=== PATIENT | female | born 1955 | race Caucasian/White ===

== ENCOUNTER 2016-08-31 12:32 | Inpatient (IN) ==
[2016-08-31 13:06] LABS: BASO% 0.4 % (0.0-0.8); EOS# 0.05 X1000 (0.0-0.7); EOS% 0.5 % (0.0-10.0); HEMOGLOBIN 11.4 g/dL (12.0-16.0); IMM GRAN# 0.02 X1000 (0.0-0.04); IMM GRAN% 0.2 % (0.0-0.5); LYMPH# 2.28 X1000 (1.2-3.4); LYMPH% 22.4 % (20.5-51.1); MANUAL DIFF NEEDED? NO; MCH 28.8 PG (27-31); MCHC 32.6 g/dL (33-37); MCV 88.4 FL (81-99); MONO# 0.74 X1000 (0.11-0.59); MONO% 7.3 % (1.7-9.3); MPV 9.2 FL (7.4-10.4); NEUT% 69.2 % (42.2-75.2); PLT 330 X1000 (130-400); RBC 3.96 XMIL (4.2-5.4)
[2016-08-31 13:16] LABS: INR 1.05; PROTIME 11.1 Seconds (9.2-11.7); PTT 27.6 Seconds (22.0-36.0)
[2016-08-31 13:29] LABS: AGAP 13; ALBUMIN 4.2 g/dL (3.5-5.0); ALKALINE PHOSPHATASE 65 U/L (32-104); BUN 10 mg/dL (8-22); CALCIUM 9.1 mg/dL (8.8-10.2); CHLORIDE 105 mmol/L (98-107); COSMO 275; GOT 31 U/L (10-30); GPT 30 U/L (10-36); POTASSIUM 3.6 mmol/L (3.5-5.1); SODIUM 137 mmol/L (136-145); TCO2 19 mmol/L (25-35); TOTAL BILIRUBIN 0.24 mg/dL (0.20-1.00); TOTAL PROTEIN 6.9 g/dL (6.3-8.3)
[2016-08-31] MEDS ORDERED: NS 1,000 ML IV ONE (14:37)
--- NOTE | 2016-08-31 14:40 | PROVIDER DOCUMENTATION ---
HPI-Abdominal Pain/GI Problem - General Chief Complaint: Rectal Bleeding Stated Complaint: BLOOD LOSS Time Seen by Provider: 08/31/16 14:30 Source: patient, family Allergies/Adverse Reactions: Patient Allergies Allergy/AdvReac Type Severity Reaction Status Date / Time No Known Allergies Allergy Verified 08/31/16 17:24 Home Medications: Home Medication List Medication Instructions Recorded Confirmed Last Taken Type Alprazolam [Alprazolam ER] 0.5 mg PO DAILY 08/31/16 08/31/16 Unknown History Biotin 1 mg PO DAILY 08/31/16 08/31/16 Unknown History Cholecalciferol (Vitamin D3) 5,000 unit PO DAILY 08/31/16 08/31/16 Unknown History [Vitamin D3] Diphenhydramine HCl [Benadryl 0.5 tab PO DAILY PRN 08/31/16 08/31/16 Unknown History Allergy] Escitalopram Oxalate [Lexapro] 10 mg PO DAILY PRN 08/31/16 08/31/16 Unknown History Iron 08/31/16 Unknown History Losartan Potassium 50 mg PO DAILY 08/31/16 08/31/16 Unknown History Lysine 1 tab PO DAILY 08/31/16 08/31/16 Unknown History Magnesium 30 mg PO 08/31/16 Unknown History Meloxicam [Mobic] 15 mg PO DAILY PRN 08/31/16 08/31/16 Unknown History Nicotine [Nicoderm Cq] 1 each TD DAILY 08/31/16 08/31/16 Unknown History Pantoprazole [Protonix] 40 mg PO DAILY@0700 08/31/16 08/31/16 Unknown History Progesterone,Micronized 08/31/16 Unknown History [Progesterone] ROSUVAstatin [Crestor] 20 mg PO DAILY 08/31/16 08/31/16 Unknown History - History of Present Illness-ABD Nature of Presenting Problems: 61yof pt c/o abd pain with diarrhea intermittently for 'years', worse x2 days with bright red blood x2 episodes during loose BMs today. She denies fever/ chills/vomiting. She does report lower back pain x2-3 days which she had associated with sleeping on a new mattress. She is accompanied to the ED today with a family member. Her PCP is Dr. Ramos. Abdominal Pain Onset Location: reports: generalized abdomen Pain Radiation: reports: no radiation Quality of Pain: reports: cramping Severity in ED: reports: mild Onset/Duration: reports: 2 days ago Timing: reports: still present Activities at Onset: reports: none Exposure to sick contacts?: No Modifying Factors: improves with: nothing Associated Symptoms: reports: other (hematochezia x2 episodes today (noted bright red blood in toilet)) Last BM: this morning Dark Stools Present?: reports: bright red blood Rectal Bleeding: reports: bloody diarrhea # of Diarrhea Episodes: 2 Rectal Pain: reports: none Emesis Description: reports: none Bruising or Bleeding Gums?: No Similar Symptoms Previously?: No Recently seen or treated by another doctor?: No Review of Systems - Adult - REVIEW OF SYSTEMS - ADULT Constitutional: reports: no symptoms reported Eyes: reports: no symptoms reported Ears, Nose, Mouth & Throat: reports: no symptoms reported Cardiovascular: reports: no symptoms reported Respiratory: reports: no symptoms reported Gastrointestinal: reports: see HPI, abdominal pain, diarrhea, rectal bleeding. denies: hematemesis, constipation, vomiting Genitourinary: reports: no symptoms reported. denies: dysuria Musculoskeletal: reports: no symptoms reported Integumentary: reports: no symptoms reported Neurological: reports: no symptoms reported Psychiatric: reports: no symptoms reported Endocrine: reports: no symptoms reported Hematologic/Lymphatic: reports: no symptoms reported Allergic/Immunologic: reports: no symptoms reported All Other Systems: Reviewed and Negative Past History - Adult - PAST MEDICAL HISTORY-ADULT Review of Records: reports: Old Records Reviewed, Nursing Assessment Review, Medications Reviewed, Social history reviewed & non-contributory. Physical Exam-General - PHYSICAL EXAM-ADULT Initial Vital Signs Reviewed: Yes - CONSTITUTIONAL General Appearance: appears well, alert, no apparent distress - HEAD, EARS, NOSE, MOUTH & THROAT HENMT: normocephalic/atraumatic, moist mucous membranes, normal ENT inspection - NECK Neck: non-tender, full range of motion, supple - RESPIRATORY Respiratory: chest non-tender, lungs clear, normal breath sounds, no pleuratic chest pain, no respiratory distress, no accessory muscle use - CARDIOVASCULAR Cardiovascular: normal peripheral pulses, regular rate, rhythm, no edema - GASTROINTESTINAL (ABDOMEN) Abdominal Exam: normal bowel sounds, soft, no organomegaly, tenderness (mild nonspecific diffuse abd tenderness, no RT/rigidity/distention) - LYMPHATIC Lymphatic: no adenopathy - MUSCULOSKELETAL Back Exam: normal inspection Extremity: normal range of motion, non-tender, normal gait, normal inspection, no pedal edema, no calf tenderness, normal capillary refill - SKIN Integumentary: normal color, normal turgor, warm/dry - NEUROLOGIC Neurologic: 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, grossly normal, no motor/sensory deficits - PSYCHIATRIC Psych/Mental Status: normal mood/affect, normal thought content, normal thought process, oriented x 3 Progress - PLAN OF CARE/RESULTS Progress/Plan/Lab Results: Vital Signs - 8 hr 08/31/16 12:47 Temperature 98.4 F Pulse Rate 85 Respiratory Rate 18 Blood Pressure 109/76 O2 Sat by Pulse Oximetry 100 Laboratory Results - last 24 hr 08/31/16 08/31/16 08/31/16 12:53 12:53 12:53 WBC 10.16 RBC 3.96 L Hgb 11.4 L Hct 35.0 L MCV 88.4 MCH 28.8 MCHC 32.6 L RDW Std Deviation Not Reportable Plt Count 330 MPV 9.2 Immature Gran % (Auto) 0.2 Neut % (Auto) 69.2 Lymph % (Auto) 22.4 Armstrong % (Auto) 7.3 Eos % (Auto) 0.5 Baso % (Auto) 0.4 Immature Gran # (Auto) 0.02 Neut # (Auto) 7.03 H Lymph # (Auto) 2.28 Armstrong # (Auto) 0.74 H Eos # (Auto) 0.05 Baso # (Auto) 0.04 PT 11.1 INR 1.05 PTT (Actin FS) 27.6 Sodium 137 Potassium 3.6 Chloride 105 Carbon Dioxide 19 L Anion Gap 13 BUN 10 Creatinine 0.8 Estimated GFR/1.73 m2 > 60 BUN/Creatinine Ratio 13 Glucose 138 H Calculated Osmolality 275 Calcium 9.1 Total Bilirubin 0.24 AST 31 H ALT 30 Alkaline Phosphatase 65 Total Protein 6.9 Albumin 4.2 Globulin 2.7 Albumin/Globulin Ratio 1.6 Blood Type Antibody Screen 08/31/16 12:53 WBC RBC Hgb Hct MCV MCH MCHC RDW Std Deviation Plt Count MPV Immature Gran % (Auto) Neut % (Auto) Lymph % (Auto) Armstrong % (Auto) Eos % (Auto) Baso % (Auto) Immature Gran # (Auto) Neut # (Auto) Lymph # (Auto) Armstrong # (Auto) Eos # (Auto) Baso # (Auto) PT INR PTT (Actin FS) Sodium Potassium Chloride Carbon Dioxide Anion Gap BUN Creatinine Estimated GFR/1.73 m2 BUN/Creatinine Ratio Glucose Calculated Osmolality Calcium Total Bilirubin AST ALT Alkaline Phosphatase Total Protein Albumin Globulin Albumin/Globulin Ratio Blood Type A NEGATIVE Antibody Screen NEGATIVE Orders Category Date Time Status Repeat Vital Signs .Blood Pressure Care 08/31/16 14:[address] ABD/PELVIS W/ IV CONT ONLY [CT] Stat Exams 08/31/16 14:37 Ordered CBC WITH ELECTRONIC DIFF [HEME] Stat Lab 08/31/16 12:53 Completed COMPREHENSIVE METABOLIC PANEL [CHEM] Stat Lab 08/31/16 12:53 Completed OCCULT BLOOD DIAGNOSTIC [STOOL] Stat Lab 08/31/16 14:30 Uncollected PROTIME WITH INR [COAG] Stat Lab 08/31/16 12:53 Completed PTT [COAG] Stat Lab 08/31/16 12:53 Completed TYPE & SCREEN [BBK] Stat Lab 08/31/16 12:53 Completed 0.9% Sodium Chloride Inj [Ns] 1,000 ml Med 08/31/16 14:37 Active IV 999 mls/hr Result Diagrams: 08/31/16 15:37 08/31/16 12:53 - REASSESSMENT Reassessment #1 Time Reassessed: 15:39 (Pt experienced large bright red BM upon being transported to CT; At BS I found pt with SBP 60s in Trendelenburg position. Ordered second IV and repeat CBC; IV fluid bolus ordered. Pt now reports a history of blood transfusion 15 yrs ago for unknown bleeding source. Discussed pt with Dr. Harp; he agrees with tx plan.) Status: worsening Reassessment #2 Time Reassessed: 17:40 (CT results pending; paged Dr. Ramos for admit. Pt with SBP >100 since IV fluids. Repeat Hct down from 35 to 31 following BM in ED.) Status: improving Reassessment #3 Time Reassessed: 17:50 (Spoke with Dr. Naresh Ramos, he states patient is not his. Pt must utilize Dr. Jose J Ramos; paged Hospitalist.) Status: unchanged Reassessment #4 Time Reassessed: 18:14 (Spoke with Dr. King, he recommends admit and also recommends consult surgeon.) Status: unchanged Reassessment #5 Time Reassessed: 18:16 (Spoke with Dr. Clemente, he is aware of patient and her CT results. He will consult.) Status: unchanged Departure - Departure Date of Disposition Decision: 08/31/16 Time of Disposition Decision: 18:17 DIAGNOSIS: Hypotension due to blood loss, Anemia, Intussusception GI bleed Qualifiers: GI bleed type/associated pathology: unspecified gastrointestinal hemorrhage type Qualified Code(s): K92.2 - Gastrointestinal hemorrhage, unspecified Disposition: ADMITTED INPATIENT 09 Certified Medical Emergency: Emergent Condition: Stable Referrals and Follow-Ups: Jose J Ramos MD [Primary Care Provider] - - Critical Care Note This patient required my direct & personal management of CC.: Yes Total Time (mins): 36 (performing reassessment with IV fluid boluses and consulting physicians.) Critical Care Statement: This patient required my direct personal management to treat or rule out processes, the absence of which, could potentiallly result in sudden, clinically significant life or limb threatening deterioration. Comments: Patient care supervised by Dr. Demond Harp in the ED today. He is aware of patient and her CT results. He agrees with plan for admit to Dr. King with surgery consult for Dr. Clemente. Attestation - Physician/ MARCELLA Attestation Patient care was provided by Advanced Practice Provider:: Yes Advanced Practice Provider:: Ivis Schmidt Advanced Practice Provider documentation review:: The Mid-level provider documentation, treatment plan and medical decision making was reviewed by the physician who agrees with all treatment and medical decision making by the [facility].
[2016-08-31] MEDS ORDERED: PROTONIX IV ONE (15:27)
[2016-08-31] MEDS ORDERED: SODIUM CHLORIDE 0.9% INJ ONE ×2 (15:27→20:21)
[2016-08-31 16:17] LABS: BASO% 0.3 % (0.0-0.8); EOS# 0.05 X1000 (0.0-0.7); EOS% 0.5 % (0.0-10.0); HEMATOCRIT 31.7 % (37.0-47.0); HEMOGLOBIN 10.3 g/dL (12.0-16.0); IMM GRAN# 0.04 X1000 (0.0-0.04); IMM GRAN% 0.4 % (0.0-0.5); LYMPH# 3.34 X1000 (1.2-3.4); LYMPH% 30.6 % (20.5-51.1); MANUAL DIFF NEEDED? NO; MCH 29.1 PG (27-31); MCHC 32.5 g/dL (33-37); MCV 89.5 FL (81-99); MONO# 0.84 X1000 (0.11-0.59); MONO% 7.7 % (1.7-9.3); MPV 9.4 FL (7.4-10.4); NEUT% 60.5 % (42.2-75.2); PLT 332 X1000 (130-400); RBC 3.54 XMIL (4.2-5.4)
--- NOTE | 2016-08-31 18:02 | Diag Imaging Result Doc PS360 ---
CT ABD/PELVIS W/ IV CONT ONLY - 08/31/2016 INDICATION: lower abd pain, GI bleed TECHNIQUE: A CT dose reduction protocol was used. COMPARISON: None FINDINGS: At the small bowel in the right lower quadrant, there is an intraluminal wall based lipoma measuring about 1.7 cm. This is apparently serving as the lead point for beginning of intussusception. See images 75-103. This is not yet obstructing. There is a lot of liquid stool throughout the colon. No free air or free fluid. No bowel wall thickening. The lung bases are clear and the heart size is normal. The liver, gallbladder, spleen, pancreas, adrenals, and kidneys are normal. Urinary bladder, uterus, and rectum are normal. Bones are intact. IMPRESSION: Intraluminal small bowel lipoma in the right lower quadrant that is serving as the lead point for an early ileal-ileal intussusception. This is not yet obstructing, but may become so. Electronically signed by Luciano Matthew 08/31/2016 5:59 PM
[2016-08-31 18:45] LABS: INR 1.08; PROTIME 11.4 Seconds (9.2-11.7); PTT 24.3 Seconds (22.0-36.0)
--- NOTE | 2016-08-31 19:30 | HISTORY AND PHYSICAL ---
CHIEF COMPLAINT: Chest pain. Hematochezia, bright red blood per rectum. HISTORY OF PRESENT ILLNESS: This is a 61-year-old female, no major medical problems. She has some hypertension, she is on Mobic. She has had intermittent diarrhea, but worse over the last 2 days and she had 4 episodes total of bright red blood per rectum. No fevers, chills, vomiting. She does have some lower back pain, but denies any abdominal pain. Denies any nausea or emesis. She does report a history of a hernia. I think a couple of years ago she had melena and she ended up seeing a GI doctor in [place]. She got transfusion. I think she was treated for H. pylori gastritis at that time. She denies any history of diverticulosis or other issue. Workup in the ER did reveal low hemoglobin and hematocrit of 10 and 33. I do not think we got a Hemoccult, but she reported that. CT scan was ordered which showed intussusception of her ileal bowel into the ileal bowel which there is an intraluminal wall-based lipoma 1.7 cm which is the leading edge of the intussusception, but no obstruction at this point. Other CT was negative. There is no evidence of colitis. The patient admitted for GI bleed and intussusception. PAST MEDICAL HISTORY: 1. Hypertension. 2. Anxiety, depression. 3. Gastritis. 4. Chronic anemia, she has seen Dr. Carter in the past and has been on iron infusions. 5. Dyslipidemia. PAST SURGICAL HISTORY: No major abdominal surgeries. SOCIAL HISTORY: No tobacco or ethanol or occasional use. ALLERGIES: No known drug allergies. MEDICATIONS: She takes Xanax 0.5 daily, biotin 1 daily, vitamin D3 5000 units daily, Benadryl, Lexapro, losartan 50 daily, lysine, magnesium, Mobic 15 daily, nicotine, Protonix and Crestor 20 daily. REVIEW OF SYSTEMS: Ten systems reviewed. Otherwise negative. PHYSICAL EXAMINATION: VITAL SIGNS: Blood pressure 120/59, heart rate of 55, respiratory rate 18, temperature 98.4 degrees, 100% on room air. GENERAL: A well-developed female, in no acute distress. HEAD: Normocephalic, atraumatic. EYES: Pupils equal, round, reactive to light. Extraocular movements were intact. EAR/NOSE/THROAT: Moist mucous membranes. NECK: Supple. CARDIOVASCULAR: Regular rate and rhythm. No murmurs, gallops, or rubs. PULMONARY: Bilateral breath sounds. Clear to auscultation. GI: Soft, nontender, nondistended. Bowel sounds are positive. EXTREMITIES: No clubbing or cyanosis. LYMPHATICS: No peripheral edema. NEUROLOGICAL: Nonfocal. LABORATORY DATA: She has a white count 10.9, hemoglobin and hematocrit 10 and 31, platelets 332,000. Coagulase negative. CMP was negative or fairly unremarkable. IMAGING: CT scan again showed ileal-ileal intussusception. ASSESSMENT: A 61-year-old female, history of hypertension, presenting with lower GI bleed presumably and intussusception. 1. Lower gastrointestinal bleed. We will monitor hemoglobin and hematocrit, pursue GI consult. She has seen Dr. Pandya in the past, so we will consult his group. Follow hemoglobin and hematocrit, continue proton pump inhibitor and follow. I am not entirely clear that the intussusception since it is all the way up in her small bowel is a source of bleeding, but it certainly could be. We will continue to follow. 2. Intussusception. Surgery has been consulted. At this point there is no obstruction. Dr. Clemente will evaluate the patient. We discussed the case briefly with him. We are going to go ahead and allow her to have clear liquids tonight and then nothing after midnight. We will go from there. We will continue pain control and follow closely. cc: MD Jose J Thomas MD
[2016-08-31 19:45] LABS: BASO% 0.2 % (0.0-0.8); EOS# 0.07 X1000 (0.0-0.7); EOS% 0.5 % (0.0-10.0); HEMATOCRIT 30.3 % (37.0-47.0); HEMOGLOBIN 9.9 g/dL (12.0-16.0); IMM GRAN# 0.04 X1000 (0.0-0.04); IMM GRAN% 0.3 % (0.0-0.5); LYMPH# 1.75 X1000 (1.2-3.4); LYMPH% 13.1 % (20.5-51.1); MANUAL DIFF NEEDED? NO; MCH 29.1 PG (27-31); MCHC 32.7 g/dL (33-37); MCV 89.1 FL (81-99); MONO# 0.74 X1000 (0.11-0.59); MONO% 5.6 % (1.7-9.3); MPV 10.5 FL (7.4-10.4); NEUT% 80.3 % (42.2-75.2); PLT 221 X1000 (130-400)
[2016-08-31] MEDS ORDERED: TYLENOL PO PRN (20:21)
[2016-08-31] MEDS ORDERED: DESYREL PO PRN (20:21)
[2016-08-31] MEDS ORDERED: ZOFRAN IV PRN (20:21)
[2016-08-31] MEDS ORDERED: SODIUM CHLORIDE 0.9% 20 ML ONE (20:38)
[2016-08-31] MEDS: NS 1,000 ML IV SCH (20:47)
[2016-08-31 22:33] LABS: HEMATOCRIT 28.6 % (37.0-47.0); HEMOGLOBIN 9.2 g/dL (12.0-16.0)
[2016-08-31] MEDS ORDERED: XANAX PO ONE (22:48)
[2016-09-01] MEDS: NS 1,000 ML IV SCH ×2 (03:44→17:55)
[2016-09-01] MEDS: MORPHINE IV PRN ×2 (03:45→20:57)
--- NOTE | 2016-09-01 05:33 | EKG Report ---
Test Performed on : 08/31/2016 5:24:41 PM Test Reason : NEAR SYNCOPE Blood Pressure : / mmHG Vent. Rate : 052 BPM Atrial Rate : 052 BPM P-R Int : 108 ms QRS Dur : 076 ms QT Int : 496 ms P-R-T Axes : 049 026 051 degrees QTc Int : 461 ms Sinus bradycardia. with short [place] Otherwise normal ECG No previous ECGs available Confirmed by Dionisio Syed MD ([id number]) on 09/02/2016 12:59:17 PM
--- NOTE | 2016-09-01 09:59 | CONSULTATION ---
DATE OF CONSULTATION: 08/31/2016 CHIEF COMPLAINT: Intussusception. HISTORY: This is a 61-year-old lady who presents with some hematochezia. She was coincidentally noted to have an ileoileal intussusception on CT scan. She denies any significant abdominal pain. She has been seen before with melena and has been transfused before. She has a history of H. pylori gastritis as well. She has been followed by Dr. Carter for chronic anemia and has received iron infusions. OTHER MEDICAL PROBLEMS: Include hypertension, anxiety, dyslipidemia. Apparently has a history of a hiatal hernia. No previous abdominal surgery. SOCIAL HISTORY: She is . She denies any alcohol or tobacco usage. MEDICATIONS: At home include Xanax, biotin, vitamin D3, Benadryl, Lexapro, losartan, lysine, magnesium, Mobic, Protonix, and Crestor. ALLERGIES: She has no known drug allergies. REVIEW OF SYSTEMS: Pertinent for the occasional lower back pain, the melena, and even hematochezia. PHYSICAL EXAMINATION: Vital Signs: She is afebrile. Heart rate 55, respiratory rate 20, blood pressure 115/60. Neck: No cervical adenopathy. Lungs: Bilateral breath sounds. Heart: Regular rhythm. Abdomen: Soft and nontender. Extremities: Femoral pulses are present. No peripheral edema. DIAGNOSTICS/LABS: White count is 13,300, hemoglobin 9.2, hematocrit 28.6. ASSESSMENT: Ileoileal intussusception which apparently is not causing any obstructive symptoms. With the low-density of the mass on CT, it probably does represent a lipoma as a lead point. I doubt that this is the cause of her bleeding. I do think that it should be resected at some point. I do not think this is an emergency. I will allow the electrical instrument maker to further evaluate her gastrointestinal bleeding and then potentially prepare her for a laparoscopic removal of the intussusception. cc: Jeronimo Clemente MD
[2016-09-01] MEDS ORDERED: PROTONIX IV SCH ×2 (11:00→17:00)
[2016-09-01] MEDS ORDERED: LEXAPRO PO PRN (12:05)
[2016-09-01] MEDS: SODIUM CHLORIDE 0.9% INJ PRN (12:51)
[2016-09-01] MEDS: COZAAR PO SCH (12:51)
[2016-09-01 13:07] LABS: HEMATOCRIT 22.9 % (37.0-47.0); HEMOGLOBIN 7.4 g/dL (12.0-16.0)
[2016-09-01] MEDS ORDERED: GOLYTELY PO ONE (14:00)
--- NOTE | 2016-09-01 17:29 | PROGRESS NOTE ---
DATE: 09/01/2016 SUBJECTIVE: The patient has no focal complaints. OBJECTIVE: Blood pressure 136/70, heart rate 58, respiratory rate of 20, temperature 97.5 degrees, 92% on room air.Cardiovascular: Regular rate and rhythm. Pulmonary: Bilateral breath sounds. Clear to auscultation. GI: Soft, nontender, nondistended. Bowel sounds are positive. LABORATORY DATA: Her hemoglobin and hematocrit has dropped to 7.4 and 2.9, white count around 13,000. Chemistries: No change from yesterday, were not repeated today. PROBLEM LIST: 1. Acute gastrointestinal bleed, presumably lower. We will continue to monitor. She is already on iron supplements. We will go ahead and transfuse 1 unit and follow clinically. Hold anti- platelet medications. Gastroenterology has been consulted. Plan for esophagogastroduodenoscopy, colon tomorrow. She has been placed on IV proton pump inhibitor. 2. Intussusception with concern over possible small bowel tumor. Dr. Clemente is evaluating the patient. Plan for surgical intervention when she is stabilized from her gastrointestinal bleed standpoint. 3. Hypertension. Appears to be stable. We will continue to monitor. DISPOSITION: Pending her clinical course. cc: Anurag King MD
[2016-09-01 18:08] LABS: RETIC% 2.35 % (0.8-2.1); RETIC-HE 37.6 PG (28.2-36.6)
[2016-09-01 18:22] LABS: IRON SATURATION 12 %; TIBC 295 ug/dL; TOTAL IRON 36 ug/dL (49-151); UNBOUND IRON 259 ug/dL (112-346)
[2016-09-01 18:51] LABS: FERRITIN 20 ng/mL (13-150)
--- NOTE | 2016-09-01 19:24 | CONSULTATION ---
DATE OF CONSULTATION: 09/01/2016 ATTENDING PHYSICIAN: Anurag King MD PRIMARY DOCTOR: Jose J Ramos MD REASON FOR CONSULTATION: Hematochezia and anemia. HISTORY OF PRESENT ILLNESS: Ms. Jordan is a 61-year-old female who was admitted on 08/31/2016 with 2-day history of bright red blood per rectum. Per the patient, she had 4 episodes of bright blood per rectum. She has had EGD and colonoscopy done [address] [place] at [place]. At that time, she was told that she had a hiatal hernia. She was also told treated for Helicobacter pylori at that time. The patient had imaging done which showed evidence of intussusception of her ileal bowel into the ileal bowel related to intraluminal lipoma measuring 1.7 cm , which is the leading edge of the intussusception. There was no evidence of any colitis. The patient was seen by Dr. Clemente who is planning for possible surgery early next week, but Gastroenterology is consulted to evaluate for possible upper GI or lower GI source for possible bleeding before blaming it on intussusception. Patient does take Mobic at home for arthritis. PAST MEDICAL HISTORY: 1. Hypertension. 2. Anxiety. 3. Depression. 4. Gastritis. 5. H. pylori. 6. Hiatal hernia. 7. Chronic anemia. Has seen Dr. Carter in the past and has been on iron infusions. 8. Dyslipidemia. PAST SURGICAL HISTORY: EGD and colonoscopy in [address] Fitzgerald. SOCIAL HISTORY: No history of alcohol, tobacco, or illicit drugs. ALLERGIES: No known drug allergies. MEDICATIONS AT HOME: Xanax 0.5 mg daily. Biotin 1 daily. Vitamin D3 5000 units daily. Benadryl. Lexapro. Losartan. Lysine. Magnesium. Mobic 15 mg daily. Nicotine. Protonix every day. Crestor 20 mg a day. REVIEW OF SYSTEMS: Denies any fevers, rigors, chills, chest pain, shortness of breath, dyspnea at rest. Denies any genitourinary or neurologic complaints. Does have history of arthritis. Denies history of nausea, vomiting or vomiting blood. Does complain of bright red blood in the stools since last 2 days. Denies any neurologic complaints. MEDICATIONS IN THE HOSPITAL: Reviewed in the EMR. PHYSICAL EXAMINATION: Vital signs: Temperature of 97.5 degrees, pulse rate of 58, respiratory rate 20, blood pressure 136/70 saturating 92% on room air. Body weight of 136 pounds 14.4 ounces, BMI of 28 kg/m2. General: Moderately built, moderately nourished lying in bed , in no acute distress. HEENT: Pale conjunctivae. No icterus. Pupils equal, react to light. Neck: Supple. Chest: Decreased breath sounds. Heart: Regular in rhythm, no murmurs. Abdomen: Soft, nontender, nondistended. Bowel sounds heard, no guarding, no rebound. Extremities: No cyanosis, clubbing, edema. Neurologic: She is alert, awake, oriented. LABORATORY: Her hemoglobin and hematocrit is 7.4 and 22.9, white count of 13.3 , platelet count of 221,000, MCV 80 and INR 1.08. PT 11.4, PTT of 24.3. Sodium 137, potassium 3.6 , chloride 105. Bicarb 99. Anion gap 13. BUN of 10. Creatinine 0.8, glucose of 130, calcium 9.1, total bilirubin is 0.24, AST 31, ALT 30, alkaline phosphatase 60, total protein 6.9, albumin of 4.2, troponin less than 0.01. IMAGING: in the form of CT of the abdomen and pelvis done on 08/31/2016 showed intraluminal small bowel lipoma in the right lower quadrant that is serving as a lead point for an early ileal-ileal intussusception. This is not yet obstructing but may become so. IMPRESSION AND PLAN: 1. Hematochezia. 2. Anemia. 3. Ileal-ileal intussusception secondary to intraluminal lipoma measuring 1.[address] Jeronimo Clemente is consulted. 4. Reflux disease. 5. Hiatal hernia. 6. History of Helicobacter pylori. 7. History of nonsteroidal antiinflammatory drugs in the form of Mobic. RECOMMENDATIONS: 1. We will continue on proton pump inhibitor, on Nexium intravenous b.i.d. 2. We will keep on clear liquid diet. 3. We will start her on GoLYTELY today; NPO past midnight and schedule EGD colonoscopy tomorrow. 4. The patient will have laboratory and serial hematocrits, and we will transfuse her if she continues to drop hematocrit. 5. Patient will follow gastroesophageal reflux life changes outpatient. 6. If the GI workup is negative then she may undergo small bowel surgery early next week by Dr. Clemente. We will continue on iron supplementation for anemia. 7. Further recommendations to follow pending the hospital course. I discussed the above plan of care the patient and family and also with Dr. Jeronimo Clemente. cc: Dilip Horta MD, Hollis King MD; Jose J Ramos MD [facility]
[2016-09-01] MEDS: XANAX PO SCH (20:30)
[2016-09-02 00:10] LABS: HEMATOCRIT 25.1 % (37.0-47.0)
[2016-09-02] MEDS: SODIUM CHLORIDE 0.9% INJ PRN ×2 (01:05→13:12)
[2016-09-02] MEDS: NEXIUM IV SCH ×2 (01:05→13:12)
[2016-09-02] MEDS: NS 1,000 ML IV SCH ×4 (02:35→18:48)
[2016-09-02 06:22] LABS: HEMATOCRIT 26.9 % (37.0-47.0); HEMOGLOBIN 8.7 g/dL (12.0-16.0); MCH 29.4 PG (27-31); MCHC 32.3 g/dL (33-37); MCV 90.9 FL (81-99); MPV 9.2 FL (7.4-10.4); RBC 2.96 XMIL (4.2-5.4)
[2016-09-02 06:45] LABS: AGAP 10; BUN 5 mg/dL (8-22); CHLORIDE 114 mmol/L (98-107); COSMO 286; POTASSIUM 3.3 mmol/L (3.5-5.1); SODIUM 145 mmol/L (136-145); TCO2 21 mmol/L (25-35)
[2016-09-02] MEDS ORDERED: PROTONIX PO SCH (07:00)
[2016-09-02 07:14] LABS: CALCIUM 7.3 mg/dL (8.8-10.2)
[2016-09-02] MEDS: POTASSIUM CHLORIDE 20 MEQ/SWI 20 MEQ/100 ML IVPB IV SCH ×2 (10:25→14:37)
[2016-09-02] MEDS: COZAAR PO SCH (10:26)
[2016-09-02] MEDS: CRESTOR PO SCH (10:26)
[2016-09-02] MEDS: FERROUS SULFATE PO SCH (10:27)
[2016-09-02] MEDS: NICODERM PATCH TD SCH (10:27)
[2016-09-02] MEDS: PATIENT'S OWN MED PO SCH (10:30)
[2016-09-02] MEDS ORDERED: DIPRIVAN 1% ONE (12:17)
[2016-09-02] MEDS ORDERED: FENTANYL ONE (12:27)
[2016-09-02] MEDS ORDERED: XYLOCAINE-MPF 2% ONE (12:34)
[2016-09-02] MEDS ORDERED: FERRLECIT 125 MG in NS 100 ML IV ONE (16:00)
--- NOTE | 2016-09-02 16:32 | PROGRESS NOTE ---
DATE: 09/02/2016 SUBJECTIVE: Patient has no focal complaints. OBJECTIVE: Vital signs: Blood pressure 131/78, heart rate 57, respiratory rate 14, temperature 98 degrees. Cardiovascular: Regular rate and rhythm. Pulmonary: Bilateral breath sounds. Clear to auscultation. GI: Soft, nontender, nondistended. Bowel sounds are positive. Extremities: No clubbing or cyanosis. Lymphatic: No peripheral edema. PROBLEM LIST: 1. Gastrointestinal bleed. Unclear what source this may be. EGD and colon today are negative but the comment per Dr. Pandya is that she had blood in her terminal ileum which makes me suspicious that she has a small bowel source and with the fact that she has an ileal intussusception is concerning for that being the source actually of her bleeding, which also raises suspicion at this point of possibly a Meckel's diverticulum. So in any case, the point is mute. Dr. Jeronimo Clemente will plan for surgery on Monday. 2. Anemia. Appears to be stable. We were going to go ahead and give her some iron and follow closely. 3. Dyslipidemia. Appears to be stable. Continue regular medications. 4. Hypertension. Continue regular medications. We will follow closely and plan for surgical preop treatment based on her risk factors. cc: Anurag King MD
[2016-09-02] MEDS: XANAX PO SCH (21:41)
[2016-09-02] MEDS: MORPHINE IV PRN (21:41)
[2016-09-03] MEDS: NEXIUM IV SCH ×2 (01:45→16:14)
[2016-09-03] MEDS: SODIUM CHLORIDE 0.9% INJ PRN (01:45)
[2016-09-03] MEDS ORDERED: MORPHINE IV PRN (01:51)
[2016-09-03] MEDS: NS 1,000 ML IV SCH (05:58)
[2016-09-03 06:00] LABS: HEMATOCRIT 15.2 % (37.0-47.0); MCH 28.8 PG (27-31); MCHC 32.2 g/dL (33-37); MCV 89.4 FL (81-99); MPV 9.4 FL (7.4-10.4); RBC 1.7 XMIL (4.2-5.4)
[2016-09-03 06:02] LABS: HEMOGLOBIN 4.9 g/dL (12.0-16.0)
[2016-09-03 06:15] LABS: AGAP 8; BUN 5 mg/dL (8-22); CALCIUM 7.1 mg/dL (8.8-10.2); CHLORIDE 107 mmol/L (98-107); COSMO 272; POTASSIUM 3.3 mmol/L (3.5-5.1); SODIUM 137 mmol/L (136-145); TCO2 22 mmol/L (25-35)
--- NOTE | 2016-09-03 09:59 | PROGRESS NOTE ---
DATE: 09/03/2016 SUBJECTIVE: Ms. Marlen Jordan is a 61-year-old white female who was admitted on 08/31/2016 through the emergency department with a gastrointestinal bleed. She was admitted to the hospitalist. A CT scan of her abdomen and pelvis was performed, which suggested a possible intussusception in the ileum. Dr. Clemente was consulted and GI Medicine. Dr. Pandya scoped the patient with both upper and lower endoscopies yesterday without a source for the bleeding. This morning she states that she has had more blood per rectum but it seems to have slowed down; however, her hematocrit was quite low at 15; that was yesterday evening and she is receiving packed red blood cells. From the computer, I think that she has received 2 units of packed red blood cells thus far. She is awake, cooperative. She did drink some liquids this morning, but because of her ongoing blood loss and significant anemia, we may need to proceed with surgery this weekend. I did discuss surgery with her. She understands this is major intra-abdominal surgery with bowel resection, and she is anxious to proceed. We specifically discussed risks of bleeding, infection, leakage from a bowel anastomosis and ongoing bleeding. cc: Blanca Weldon MD
[2016-09-03] MEDS: COZAAR PO SCH (10:04)
[2016-09-03] MEDS: CRESTOR PO SCH (10:05)
[2016-09-03] MEDS: FERROUS SULFATE PO SCH (10:05)
[2016-09-03] MEDS: NICODERM PATCH TD SCH (10:05)
[2016-09-03] MEDS: PATIENT'S OWN MED PO SCH (10:05)
[2016-09-03] MEDS ORDERED: ALBUMIN 25% IV ONE (10:30)
[2016-09-03] MEDS ORDERED: QUELICIN (DOSE) ONE (10:37)
[2016-09-03] MEDS ORDERED: XYLOCAINE-MPF 2% ONE (10:37)
[2016-09-03] MEDS ORDERED: AMIDATE ONE (10:37)
[2016-09-03] MEDS ORDERED: KEFZOL 1 GM/D5W 1 GM/50 ML IVPB ONE (10:52)
[2016-09-03] MEDS ORDERED: ZEMURON ONE ×2 (11:00→12:04)
[2016-09-03] MEDS ORDERED: MARCAINE 0.25% PF ONE (11:02)
[2016-09-03] MEDS ORDERED: EXPAREL 1.3% ONE (11:02)
[2016-09-03] MEDS ORDERED: SODIUM CHLORIDE 0.9% 10 ML ONE (11:02)
[2016-09-03] MEDS ORDERED: FENTANYL ONE (11:03)
[2016-09-03] MEDS ORDERED: ROBINUL ONE ×2 (11:21→12:09)
[2016-09-03] MEDS ORDERED: OFIRMEV 1000 MG/ISOTONIC SOLN 1,000 MG/100 ML BOTTLE ONE (11:31)
[2016-09-03] MEDS ORDERED: EPHEDRINE ONE (11:31)
[2016-09-03] MEDS ORDERED: ZOFRAN ONE (11:31)
[2016-09-03] MEDS ORDERED: DECADRON ONE (11:31)
[2016-09-03] MEDS ORDERED: NEOSTIGMINE ONE (12:09)
[2016-09-03] MEDS: MORPHINE ONE ×2 (13:05→13:15)
--- NOTE | 2016-09-03 13:12 | Diag Imaging Result Doc PS360 ---
EXAM: CHEST-PORTABLE HISTORY: CVL placement TECHNIQUE: Portable upright AP COMPARISON: 08/04/2011 FINDINGS: A nasogastric tube overlies the esophagus and stomach. There is a right subclavian portacatheter. The tip overlies the distal superior vena cava. No pneumothorax. Heart is not enlarged. No pneumonia. No pleural effusions identified. IMPRESSION: Right subclavian line and nasogastric tubes in good position. Electronically signed by Oni Tam 09/03/2016 1:09 PM
[2016-09-03 13:14] LABS: HEMATOCRIT 30.3 % (37.0-47.0); HEMOGLOBIN 10.1 g/dL (12.0-16.0)
[2016-09-03] MEDS ORDERED: SODIUM CHLORIDE 0.9% INJ PRN (13:15)
[2016-09-03] MEDS ORDERED: LR 1,000 ML ONE (13:15)
[2016-09-03] MEDS ORDERED: PHENERGAN IV PRN (13:15)
[2016-09-03] MEDS: PHENERGAN ONE ×2 (13:20→13:25)
[2016-09-03] MEDS ORDERED: DILAUDID ONE (13:33)
[2016-09-03 14:13] LABS: URINE SOURCE CATH
[2016-09-03 14:40] LABS: URINE MICRO REVIEW NEEDED? YES
[2016-09-03 14:41] LABS: BILIRUBIN URINE NEGATIVE (NEGATIVE); BLOOD URINE NEGATIVE (NEGATIVE); COLOR STRAW; GLUCOSE URINE NEGATIVE (NEGATIVE); LEUKOCYTES URINE LARGE (NEGATIVE); NITRITE URINE NEGATIVE (NEGATIVE); PH URINE 5.5; PROTEIN URINE NEGATIVE (NEGATIVE); SP GRAVITY URINE 1.002; TURBIDITY URINE HAZY (CLEAR); UROBILINOGEN URINE NORMAL (NORMAL)
--- NOTE | 2016-09-03 14:41 | OPERATIVE NOTE ---
PROCEDURE DATE: 09/03/2016 PREOPERATIVE DIAGNOSIS: 1. Massive gastrointestinal bleed. 2. Bleeding from a small bowel mass ileum. PRINCIPAL PROCEDURE: 1. Placement of right subclavian central venous line. 2. Exploratory laparotomy with small-bowel resection. SURGEON: Blanca Weldon MD. 1ST TELEPHONE ENGINEER: ELDER Guzmán. ANESTHESIA: General. ESTIMATED BLOOD LOSS: 50 mL. DRAINS: None. INDICATIONS: Ms. Marlen Jordan is a 61-year-old white female who presented with a massive lower GI bleed. A CT scan of her abdomen and pelvis suggested a mass and possible intussusception in the ileum. She underwent upper and lower endoscopy yesterday by Dr. Pandya and no source of bleeding was identified with these endoscopies. It was felt she was bleeding more proximally in the small bowel and it correlated with the CT findings. This morning, her hematocrit was 15%. She was going to receive her 4th unit of packed red blood cells, and we felt we should take her to surgery because of ongoing intestinal bleeding. FINDINGS: We palpated a small bowel mass in the mid ileum and we were resected that segment of ileum and performed an end-to-end sewn anastomosis. We opened the specimen at the end of the procedure and she had a pedunculated smooth mass in the lumen of this segment of ileum and there appeared to be an ulceration where she had been bleeding. It was clear that blood was in her distal ileum from this area of the small bowel mass distally. We felt the more proximal small bowel was without blood. We felt this was the etiology of her bleeding. No other intra-abdominal pathology was noted. Her liver appeared to be healthy. Her gallbladder was not inflamed the rest of her bowel had no evidence of pathology. PROCEDURE: The patient was brought to the operating room, placed supine, received general anesthesia, was intubated. I began the procedure by placing a right subclavian central venous line. This area of her chest was prepped and draped within a sterile field. I used an 18-gauge needle to access the right subclavian vein, the lower clavicle. This stick was made blindly. Through the needle, I placed a guidewire into the right side of her heart. The needle was removed. I placed a dilator over the guidewire, and then we used an antibiotic triple-lumen central venous line and placed it over the guidewire into the superior vena cava. The guidewire was removed. The catheter was secured to the skin with two 3-0 silk stitches. All 3 ports were functioning and were flushed with saline. Dressings were applied. She tolerated this procedure well. We used this central venous line during the procedure. We then prepped and draped her abdomen. I used an Ioban on the skin. She received Ancef prophylactically. We made a midline incision centered at her umbilicus with a 10 blade scalpel. The cautery was used to transect the soft tissue down to the midline fascia, and we carefully entered the abdomen. We explored the abdomen with the findings above and we decided to resect a small segment of ileum where this intraluminal mass was present. I used a LISA proximally and distally so that I removed this segment of ileum with the mass. We came across the small bowel mesentery in a pie-shaped fashion using hemostats and we ligated the vessels with 3-0 silk ties. I performed an end-to-end double-layer sewn anastomosis between the 2 cut ends of the ileum after removal of approximately 6-inch segment of bowel. The posterior layer was interrupted 3-0 silk stitches. I then excised the staple line on both sides. Using the cutting current of the cautery. I used a double-armed, 3-0 Vicryl stitch to reinforce the posterior suture line with an interlocking running 3-0 Vicryl stitch which was continued on the anterior wall of our anastomosis as a [place] stitch. I reinforced the anterior wall with interrupted 3-0 silk Lembert stitches. There was no tension on our anastomosis. We felt the blood supply was excellent and the caliber of the anastomosis was widely patent. We reapproximated the defect in the small bowel mesentery with interrupted 3-0 silk stitches. We placed the bowel back in its anatomically correct position. We placed greater omentum over the surface of the bowel and we closed the midline incision in layers. The first layer was a running 0 Vicryl stitch to reapproximate the peritoneum. We then reapproximated the midline fascia with a running #1 Maxon stitch. We irrigated the wound and then closed the skin with a skin clip cartography teacher. Dressings were applied. She tolerated the procedure well. She will go to the recovery room with an NG tube and Oneil catheter tube in place. cc: Blanca Weldon MD
[2016-09-03 14:44] LABS: UR EPITHELIAL CELLS <10 /HPF (<10); URINE BACTERIA 4+ /HPF; URINE RBC <10 /HPF (<10); URINE WBC TNTC /HPF (<10)
--- NOTE | 2016-09-03 14:54 | OPERATIVE NOTE ---
PROCEDURE DATE: PROCEDURE: 1. Colonoscopy. 2. Esophagogastroduodenoscopy. PREOP DIAGNOSIS: Gastrointestinal bleed. POSTOP DIAGNOSES: 1. Fresh and blood clots in the terminal ileum up to 70 cm. 2. Normal EGD and normal colon. DESCRIPTION OF PROCEDURE: After informed consent and adequate intravenous sedation and under anesthesia the scope introduced the esophagus, stomach and duodenum all the way into 3rd portion. There is no signs of any bleeding. No bleeding lesions, no fresh or old blood seen. The scope was withdrawn. At this point, the scope introduced into the rectum, advanced. There is a moderate amount of old blood in the colon. This was lavaged. There is some fresh blood in the cecum. This was aspirated and lavaged, terminal ileum was entered. There is also some blood and streaks of clots in the terminal ileum. I examined up to 70 cm. There is still some blood seen so I do not think this is backwash particularly when she just drank a Colyte. Scope withdrawn. The patient tolerated the procedure well without any immediate complications. IMPRESSION: In view of negative upper gastrointestinal endoscopy and I did not see any diverticulosis and then presence of blood in the ileum I wonder of the tumor in the ileum got eroded but it is beyond the reach of my scope since it has a midileum. This was communicated to Dr. Clemente . cc: Tish Pandya MD
[2016-09-03] MEDS ORDERED: PEPCID IV SCH (16:15)
[2016-09-03] MEDS ORDERED: SODIUM CHLORIDE 0.9% INJ SCH (16:15)
--- NOTE | 2016-09-03 16:22 | PROGRESS NOTE ---
DATE: 09/03/2016 SUBJECTIVE: Patient has no focal complaints. She has understandable complaints postop but she is looking very well postoperatively. OBJECTIVE: Vital signs: Blood pressure is 125/75, heart rate 60, respiratory of 14, temperature of 98.1 degrees. Cardiovascular: Regular rate, rhythm. Pulmonary: Bilateral breath sounds. Clear to auscultation. GI: Soft, nontender, nondistended. Bowel sounds are positive. Extremities: No clubbing or cyanosis. Lymphatics: No peripheral edema. Neurological: Nonfocal. LABORATORY DATA: Hemoglobin and hematocrit 10 and 30, white count 8.9, platelets 159,000. Potassium 3.3, calcium 7.1. PROBLEM LIST: 1. Gastrointestinal bleed associated with a ulcerated mass in her small bowel. Unknown etiology at this time. EGD, colon were normal. This was a source of bleed. Certainly could be a Meckel diverticulum. She had an associated intussusception pathology obviously pending. Appreciate Dr. Weldon's urgent intervention. He operated her on Monday today the 8th as she had a progression in her GI bleed. 2. Anemia posthemorrhagic. Hemoglobin and hematocrit appears to be stable. She has gotten a total of 5 units of looks like so she has she may have gotten 1 in the OR too. Her hemoglobin and hematocrit is now up to 10 and 30. She is somewhat iron deficient. We will continue to monitor. 3. Disposition. We will continue to follow closely. One she is liberated from her lines will plan for physical therapy and more movement. Anticipate hopeful discharge home. cc: Anurag King MD
[2016-09-03] MEDS: TORADOL IV SCH ×2 (17:53→19:50)
[2016-09-03] MEDS: OFIRMEV 1000 MG/ISOTONIC SOLN 1,000 MG/100 ML BOTTLE IV SCH ×2 (17:53→23:11)
[2016-09-03] MEDS: LR 1,000 ML IV SCH (17:53)
[2016-09-03] MEDS: MORPHINE IV PRN ×2 (18:06→23:13)
[2016-09-03] MEDS: PERIDEX MT SCH ×2 (19:50→21:00)
[2016-09-03] MEDS: XANAX PO SCH ×2 (19:50→23:01)
[2016-09-04] MEDS: NEXIUM IV SCH ×2 (00:45→11:59)
[2016-09-04] MEDS: MORPHINE IV PRN ×4 (01:01→21:24)
[2016-09-04] MEDS: TORADOL IV SCH ×4 (02:36→20:14)
[2016-09-04] MEDS: OFIRMEV 1000 MG/ISOTONIC SOLN 1,000 MG/100 ML BOTTLE IV SCH ×4 (04:35→22:19)
[2016-09-04] MEDS: LOVENOX SUBQ SCH ×2 (04:36→05:12)
[2016-09-04] MEDS: LR 1,000 ML IV SCH ×2 (05:11→21:12)
[2016-09-04 06:33] LABS: HEMATOCRIT 24.7 % (37.0-47.0); HEMOGLOBIN 8.2 g/dL (12.0-16.0); MCH 29.6 PG (27-31); MCHC 33.2 g/dL (33-37); MCV 89.2 FL (81-99); MPV 10.2 FL (7.4-10.4); RBC 2.77 XMIL (4.2-5.4)
[2016-09-04 06:36] LABS: AGAP 10; BUN 6 mg/dL (8-22); CALCIUM 7.3 mg/dL (8.8-10.2); CHLORIDE 106 mmol/L (98-107); COSMO 279; POTASSIUM 3.4 mmol/L (3.5-5.1); SODIUM 141 mmol/L (136-145); TCO2 25 mmol/L (25-35)
[2016-09-04] MEDS: PERIDEX MT SCH ×2 (08:51→20:14)
[2016-09-04] MEDS: NICODERM PATCH TD SCH (08:51)
[2016-09-04] MEDS: COZAAR PO SCH (08:52)
[2016-09-04] MEDS: PATIENT'S OWN MED PO SCH (08:52)
[2016-09-04] MEDS: CRESTOR PO SCH (08:52)
[2016-09-04] MEDS: FERROUS SULFATE PO SCH (08:52)
--- NOTE | 2016-09-04 09:33 | PROGRESS NOTE ---
DATE: 09/04/2016 SUBJECTIVE: Ms. Jordan is now postop day 1 from a small bowel resection for GI bleed, and a small bowel mass. She is sitting up. She looks comfortable and is talkative this morning. OBJECTIVE: Her heart rate is 52, blood pressure 101/60, O2 saturation 100%. She is afebrile. She has had no clinical evidence of ongoing GI bleed. She has an NG tube and Oneil catheter tube in place. Her hematocrit is 25%. LABORATORY DATA: Her white blood cell count is 13.5. Electrolytes: BUN and creatinine are 6 and 0.5. PLAN: We will continue to watch her hematocrit and be sure that it does not continue to fall. We will remove her NG tube and Oneil catheter tube this morning. We will increase her activity. cc: Blanca Weldon MD
[2016-09-04] MEDS: SODIUM CHLORIDE 0.9% INJ PRN (11:59)
[2016-09-04] MEDS: ROCEPHIN 1 GM/NS 1 GM/50 ML IVPB IV SCH (14:22)
--- NOTE | 2016-09-04 16:05 | PROGRESS NOTE ---
DATE: 09/04/2016 SUBJECTIVE: Looks well. NG tube was out this morning per Dr. Weldon. She is still on ice chips. OBJECTIVE: Vital signs: Blood pressure 113/62, heart rate of 58, respiratory rate 20, temperature 97.8 degrees, 100% on 2 L. Cardiovascular: Regular rate and rhythm. Pulmonary: Bilateral breath sounds. Clear to auscultation. GI: Soft, nontender, nondistended. Bowel sounds are positive. Extremities: No clubbing or cyanosis. Lymphatics: No peripheral edema. Neurological: Nonfocal. LABORATORY DATA: White count 13, hemoglobin and hematocrit 8 and 24, platelets 129,000. Potassium 3.4. PROBLEM LIST: 1. Ulcerated mass in the small bowel with intussusception, status post exploratory laparoscopy and resection, postop day 1. Dr. Weldon managing. She is stable. Her hemoglobin and hematocrit has dropped. She has received a total of 5 units and her hemoglobin and hematocrit is 8 and 24. We will continue to follow. At this point, she has not had further bleeding or no bowel movement at least. 2. Anemia, status post hemorrhage with some iron deficiency. She is on some iron at this point. We are waiting for her bowels to wake up. 3. Possible early urinary tract infection. Based on her laboratory data, she has [id number]- count white blood cells, 4+ bacteria. We will start Rocephin and follow urine culture results. 4. Disposition. Pending resolution of her bowel function, hopefully can go home soon. Follow up on path tomorrow. cc: Anurag King MD
[2016-09-04] MEDS ORDERED: DIFLUCAN PO ONE (16:13)
--- NOTE | 2016-09-04 19:14 | PROGRESS NOTE ---
DATE: 09/03/2016 SUBJECTIVE: Patient has developed more abdominal distention associated with nausea and vomiting and after I did the upper and lower endoscopy, she required NG tube and suction. She is currently on NG suction. OBJECTIVE: Vital Signs: Blood pressure 125/75. Heart rate 62. Respirations 14, temperature 98. HEENT: There is conjunctival pallor present. Neck: Supple. She is still jovial. Explained that she would need surgery. Heart: Normal. Abdomen: Nondistended. Bowel sounds are present. Extremities: Unremarkable . LABORATORY: Hemoglobin and hematocrit are 10 and 30. IMPRESSION AND PLAN: 1. Massive gastrointestinal bleed. 2. 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 She has blood in the terminal ileum with clots all the way into the about 70 cm. 3. Post hemorrhagic anemia. 4. Small-bowel obstruction due to intussusception. I have talked to Dr. Weldon yesterday and today he will see and she most likely needs surgery. This is not going to resolve by simple nasogastric suction I think. We will follow after Dr. Weldon's evaluation. cc: Tish Pandya MD
--- NOTE | 2016-09-04 19:15 | PROGRESS NOTE ---
DATE: 09/04/2016 SUBJECTIVE: Patient feels fine. No complaints. Soreness at the operative site. The NG tube was taken out. She is on ice chips. OBJECTIVE: Vital signs: Blood pressure 130/62, heart rate 58, respirations 20, temperature 97.8 degrees, 100% on 2 L. HEENT: Conjunctival pallor. Neck: Supple. Trachea midline. Heart: Normal. Lungs: Normal. Abdomen: Bowel sounds are present already. Extremities: No clubbing or cyanosis. LABORATORY DATA: Hemoglobin and hematocrit are stable, 8 and 24, slightly lower than yesterday, platelets 129,000. IMPRESSION: 1. Likely benign pedunculated ulcerated mass in the mid ileum causing bleed. 2. Intussusception caused by pedunculated mass causing small bowel obstruction. 3. Anemia post hemorrhagic. 4. Possible early urinary tract infection with 4+ bacteremia. As far as a gastrointestinal point, the problem is taken care of. I do not think she will bleed anymore. It is just a matter of getting over surgery. Patient looks very well postoperatively. Should be able to go home once bowel function is resumed. -3 cc: Tish Pandya MD
[2016-09-04] MEDS: XANAX PO SCH (20:22)
[2016-09-04] MEDS ORDERED: NS 0 ML ONE (20:23)
[2016-09-05] MEDS: TORADOL IV SCH ×3 (01:03→14:51)
[2016-09-05] MEDS: NEXIUM IV SCH ×3 (01:03→15:40)
[2016-09-05] MEDS: MORPHINE IV PRN ×5 (01:03→21:31)
[2016-09-05] MEDS: OFIRMEV 1000 MG/ISOTONIC SOLN 1,000 MG/100 ML BOTTLE IV SCH ×3 (04:18→17:35)
[2016-09-05] MEDS: LR 1,000 ML IV SCH (04:21)
[2016-09-05] MEDS: PERIDEX MT SCH ×3 (07:41→20:07)
[2016-09-05] MEDS: COZAAR PO SCH ×2 (07:41→11:00)
[2016-09-05] MEDS: ARIXTRA SUBQ SCH ×2 (07:42→10:59)
[2016-09-05] MEDS: FERROUS SULFATE PO SCH ×2 (07:42→11:00)
[2016-09-05 09:25] LABS: MANUAL DIFF NEEDED? NO
[2016-09-05 09:48] LABS: BASO% 0.1 % (0.0-0.8); EOS% 0.7 % (0.0-10.0); HEMATOCRIT 27.3 % (37.0-47.0); HEMOGLOBIN 8.9 g/dL (12.0-16.0); IMM GRAN# 0.03 X1000 (0.0-0.04); IMM GRAN% 0.2 % (0.0-0.5); LYMPH% 22.6 % (20.5-51.1); MCH 29.2 PG (27-31); MCHC 32.6 g/dL (33-37); MCV 89.5 FL (81-99); MONO# 1.29 X1000 (0.11-0.59); MONO% 8.6 % (1.7-9.3); MPV 9.9 FL (7.4-10.4); NEUT% 67.8 % (42.2-75.2); PLT 196 X1000 (130-400); RBC 3.05 XMIL (4.2-5.4)
[2016-09-05 10:19] LABS: AGAP 10; BUN 6 mg/dL (8-22); CALCIUM 8.5 mg/dL (8.8-10.2); CHLORIDE 107 mmol/L (98-107); COSMO 284; MAGNESIUM 1.7 mg/dL (1.5-2.7); POTASSIUM 2.8 mmol/L (3.5-5.1); SODIUM 144 mmol/L (136-145); TCO2 27 mmol/L (25-35)
[2016-09-05] MEDS: PATIENT'S OWN MED PO SCH (10:59)
[2016-09-05] MEDS: NICODERM PATCH TD SCH (10:59)
[2016-09-05] MEDS ORDERED: POTASSIUM CHLORIDE 60 MEQ in NS 500 ML IV ONE (11:30)
[2016-09-05] MEDS: SODIUM CHLORIDE 0.9% INJ PRN (11:46)
[2016-09-05] MEDS: D5 1/2 NS 1,000 ML IV SCH (11:46)
[2016-09-05] MEDS: COLACE PO SCH ×2 (11:47→20:07)
[2016-09-05] MEDS: ZOSYN 3.375 GM/NS 3.375 GM/50 ML IVPB IV SCH ×2 (12:11→17:35)
[2016-09-05] MEDS: ROCEPHIN 1 GM/NS 1 GM/50 ML IVPB IV SCH (12:49)
--- NOTE | 2016-09-05 16:27 | PROGRESS NOTE ---
DATE: 09/05/2016 SUBJECTIVE: The patient is sitting up in bed. She is tolerating a full liquid diet without any difficulty. OBJECTIVE: Vital Signs: Temperature 98.5 degrees, blood pressure 90/52, heart rate 62, respirations 14, O2 saturations 95% on room air. General: This is an elderly female sitting up in bed in no acute distress. Head: Normocephalic, atraumatic. Heart: S1, S2. Normal. Bradycardic. Lungs: Clear to auscultation bilaterally. Abdomen: Positive bowel sounds. Soft, nontender. Extremities: No edema. No cyanosis. Neurologic: The patient is alert oriented x3. LABS: White blood cell count 15, hemoglobin 8.9, hematocrit 27, platelets 196, 000. Sodium 144, potassium 2.8, chloride 107, CO2 27, BUN 6, creatinine 0.6, glucose 87, magnesium 1.7. ASSESSMENT AND PLAN: 1. Status post exploratory laparotomy with small bowel resection secondary to bleeding from a small bowel mass. Management as per the general surgeon. The patient is currently tolerating a full liquid diet. 2. Leukocytosis. The patient's white blood cell count has slowly been rising. The patient has remained afebrile over the last 48 hours. Will check blood cultures and repeat a chest x-ray. Will add Zosyn. 3. Urinary tract infection. So far the urine culture is showing no growth. Again Zosyn has been added today due to the increase in white blood cell count. 4. Iron-deficiency anemia. Continue with iron supplementation. 5. Hypokalemia. Replace potassium 6. Deep vein thrombosis prophylaxis. Continue on Arixtra. Continue with physical therapy. cc: Astrid Delgado MD [facility]
--- NOTE | 2016-09-05 18:20 | PROGRESS NOTE ---
DATE: 09/05/2016 SUBJECTIVE: Ms. Jordan is now postop day 2 from a small bowel resection for a bleeding small bowel mass. She is up, cooperative. She has had some flatus. OBJECTIVE: Her heart rate is 56, blood pressure 115/67, O2 saturation 100%. She is voiding without Oneil. She is eating full liquids. Her white blood cell count 15, hematocrit is 27%. Electrolytes are within normal limits except for potassium was low. She is receiving supplementation. Her incisions healing well. Her abdomen is slightly distended. PLAN: We will increase her activity and diet and hopefully home soon. cc: Blanca Weldon MD
[2016-09-05] MEDS ORDERED: CRESTOR PO SCH (21:00)
[2016-09-05] MEDS: XANAX PO SCH (21:23)
[2016-09-06] MEDS: ZOSYN 3.375 GM/NS 3.375 GM/50 ML IVPB IV SCH ×2 (00:08→09:31)
[2016-09-06] MEDS: D5 1/2 NS 1,000 ML IV SCH ×2 (00:08→13:12)
[2016-09-06] MEDS: NEXIUM IV SCH ×2 (01:27→12:42)
[2016-09-06] MEDS: MORPHINE IV PRN ×3 (03:10→12:42)
[2016-09-06 05:44] LABS: MANUAL DIFF NEEDED? NO
[2016-09-06 06:00] LABS: BASO% 0.2 % (0.0-0.8); EOS# 0.09 X1000 (0.0-0.7); EOS% 0.9 % (0.0-10.0); HEMATOCRIT 23.7 % (37.0-47.0); HEMOGLOBIN 7.6 g/dL (12.0-16.0); LYMPH% 21.8 % (20.5-51.1); MCHC 32.1 g/dL (33-37); MCV 90.5 FL (81-99); MONO# 0.76 X1000 (0.11-0.59); MONO% 7.5 % (1.7-9.3); MPV 10.1 FL (7.4-10.4); NEUT% 69.6 % (42.2-75.2); PLT 212 X1000 (130-400); RBC 2.62 XMIL (4.2-5.4)
[2016-09-06 06:14] LABS: AGAP 6; BUN 5 mg/dL (8-22); CALCIUM 8.3 mg/dL (8.8-10.2); CHLORIDE 108 mmol/L (98-107); COSMO 280; MAGNESIUM 1.7 mg/dL (1.5-2.7); POTASSIUM 3.2 mmol/L (3.5-5.1); SODIUM 142 mmol/L (136-145); TCO2 28 mmol/L (25-35)
[2016-09-06] MEDS ORDERED: MAGNESIUM SULFATE 2 GM/S.W.I. 2 GM/50 ML IVPB IV ONE (06:58)
[2016-09-06 07:37] VITALS: BP 151/71
[2016-09-06] MEDS ORDERED: POTASSIUM CHLORIDE 60 MEQ in NS 500 ML IV ONE (08:00)
[2016-09-06] MEDS: COZAAR PO SCH (09:18)
[2016-09-06] MEDS: FERROUS SULFATE PO SCH (09:18)
[2016-09-06] MEDS: PERIDEX MT SCH (09:18)
[2016-09-06] MEDS: COLACE PO SCH (09:18)
[2016-09-06] MEDS: ARIXTRA SUBQ SCH (09:19)
[2016-09-06] MEDS: PATIENT'S OWN MED PO SCH (09:33)
[2016-09-06] MEDS: SODIUM CHLORIDE 0.9% INJ PRN (12:42)
--- NOTE | 2016-09-06 20:24 | DISCHARGE SUMMARY ---
ADMISSION DATE: 08/31/2016 DISCHARGE DATE: 09/06/2016 ADMITTING DIAGNOSIS: Massive GI bleed. 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 PRINCIPAL PROCEDURE: Exploratory laparotomy with small-bowel resection on 09/03/2016. DISCHARGE DIET: Regular. DISCHARGE DISPOSITION: She will return to our outpatient offices in a week for followup. DISCHARGE MEDICATIONS: She is to return to her home medications in addition to [place] 7.5 for pain. HOSPITAL COURSE: Ms. Marlen Jordan is a 61-year-old white female who presented to our emergency department with GI bleeding. She underwent a CT scan of her abdomen and pelvis at the time of her presentation which suggested a small-bowel tumor and possible intussusception. It was not felt to be obstructing. She underwent upper and lower endoscopy per Dr. Pandya on 09/02/2016 and the source for her GI bleed was not identified. It was felt that it could be the small-bowel tumor. On 09/03/2016 her hematocrit was 15% and we felt we should take her to surgery to resect this small-bowel tumor. This tumor was in the mid ileum and we resected a segment of mid ileum and did a double-layer sewn anastomosis end-to-end. We felt the surgery went well and after surgery she went to the recovery room and then to the floor. We feel that her postoperative convalescence was been normal. At discharge her midline incision was healing well. Her abdomen was soft without tenderness. She was independent in her room. She was stable and her white blood cell count was normal. Her hematocrit at discharge was 24%, heart rate 63, blood pressure 151/71, O2 saturation 95%. She was voiding without a Oneil. Urine output was excellent. She was afebrile. She knows to contact us with any increasing abdominal pain, nausea, or vomiting. Otherwise, I will see her in a week. cc: Blanca Weldon MD
--- NOTE | 2016-09-11 10:31 | PROGRESS NOTE ---
DATE: 09/11/2016 SUBJECTIVE: The patient is sitting in bed, tolerating diet. No complaint. Had a bowel movement. Getting ready to go home. OBJECTIVE: Vital Signs: Temp 98 degrees, blood pressure 90/50, heart rate 62, respirations 14, O2 saturation 95%. HEENT: No scleral icterus. Conjunctival pallor. Neck: Supple. Trachea in the midline. Abdomen: Wounds appear uninfected. Dressings are clean. Bowel sounds are present and normal. Extremities: No cyanosis or clubbing. Neurological: Alert and oriented. LABORATORY DATA: White count is about 15,000, hematocrit 27. Potassium low at 2.8. Magnesium at 1.7. IMPRESSION: 1. Status post laparotomy for resection of the small bowel tumor. 2. Intussusception secondary to #2. 3. Gastrointestinal blood loss anemia from erosion and ulcerated mass in the ileum which is #1. 4. Hypokalemia. Being replaced. 5. Deep vein thrombosis prophylaxis. PLAN: Patient is going home. She is on PPI. I have talked to her about taking [id number] iron. I will see her as out patient as needed. cc: Tish Pandya MD
== END 2016-09-06 16:03 | disposition home or self-care (01) ==
LOC: ED 12:32 → 4N 20:02 → SUATTDRO 20:02 → 4N 09-03 12:55
PROVIDERS: ATTEND Internal Medicine